=== PATIENT | male | born 1990 | race Two or more races ===

== ENCOUNTER 2023-01-31 20:51 | Inpatient (IN) | payer OTHER ==
[~2023-01-31] VITALS: Ht 182.9 cm; Wt 77.1 kg
[~2023-01-31 20:51] MED LIST: DUI500 PO; MUPIROCIN15 GM TOP
[2023-01-31 23:34] LABS: HEMATOCRIT 43.4 % (39.0-48.0); HEMOGLOBIN 14.7 g/dL (13-16.00); MEAN CELL VOLUME 90.5 fL (80.0-100.00); MEAN CORPUSCULAR HEMOGLOBIN 30.6 pg (27.00-32.0); MEAN CORPUSCULAR HGB CONC 33.8 g/dl (32.0-36.0); PLATELET COUNT 267 K/uL (150-450); RED CELL DISTRIBUTION WIDTH 14.5 % (11.5-14.5)
[2023-01-31 23:36] LABS: PH,URINE 5.5 (5.0-8.0); URINE APPEARANCE Clear; URINE BILIRRUBIN Negative (NEGATIVE); URINE BLOOD Moderate; URINE COLOR Yellow; URINE GLUCOSE Negative (NEGATIVE); URINE LEUKOCYTE Negative; URINE NITRATE Negative; URINE PROTEIN Negative (NEGATIVE)
[2023-01-31 23:40] LABS: URINE BACTERIA 22.6 uL (0.0-1933); URINE EPITHELIAL CELLS 1.6 uL (0.0-38.8); URINE RBC 25.5 uL (0.0-20.8); URINE WBC 3.3 uL (0.0-23.2)
[2023-01-31 23:51] LABS: INR < 0.93; PARTIAL THROMBOPLASTIN TIME 26.1 SECONDS (22.0-34.0); PROTHROMBIN TIME 9.8 SECONDS (9.0-11.5)
[2023-01-31 23:55] LABS: ALBUMIN 3.9 gm/dL (3.4-5.0); BILIRUBIN TOTAL 0.74 mg/dL (0.3-1.2); C-REACTIVE PROTEIN 7.41 MG/DL (0.00-0.29); CALCIUM 9.1 mg/dL (8.5-10.1); CREATININE SERUM 1.03 mg/dL (0.70-1.30); GFR 84.79; GLOBULINA 4.2 G/DL (2.4-3.5); POTASSIUM 3.58 mEq/L (3.5-5.1); TOTAL PROTEIN 8.1 gm/dL (6.4-8.2)
[2023-02-04] MEDS ORDERED: INTESTINEX680 M1 PO (18:19)
[2023-02-04] MEDS ORDERED: MONDOXYNE NL100 MG PO (18:19)
[2023-02-04] MEDS ORDERED: MUPIROCIN22 GM NASAL (18:19)
== END 2023-02-04 19:03 | disposition home or self-care (01) | DRG 603 ==
LOC: ER 20:51 → MEDJ 02-01 19:04 → MEDI 02-01 19:04 → MEDJ 02-03 15:52
PROVIDERS: General Practice; ADMIT Internal Medicine; ATTEND Internal Medicine
PROC: BN25ZZZ Computerized Tomography (CT Scan) of Facial Bones (ICD-10-PCS; principal; 2023-01-31)
DX: L03.211 Cellulitis of face (principal); K13.0 Diseases of lips; B95.61 Methicillin susceptible Staphylococcus aureus infection as the cause of diseases classified elsewhere